=== PATIENT | female | born 1985 | race Caucasian/White ===

== ENCOUNTER 2016-03-15 14:22 | Emergency (ER) ==
[2016-03-15 14:58] LABS: MANUAL DIFF NEEDED? NO
[2016-03-15 15:06] LABS: BASO% 0.6 % (0.0-0.8); EOS# 0.13 X1000 (0.0-0.7); EOS% 2.7 % (0.0-10.0); HEMATOCRIT 41.7 % (37.0-47.0); HEMOGLOBIN 14.2 g/dL (12.0-16.0); LYMPH# 1.26 X1000 (1.2-3.4); LYMPH% 25.9 % (20.5-51.1); MCH 31.8 PG (27-31); MCHC 34.1 g/dL (33-37); MCV 93.5 FL (81-99); MONO# 0.46 X1000 (0.11-0.59); MONO% 9.4 % (1.7-9.3); MPV 12.2 FL (7.4-10.4); NEUT% 61.4 % (42.2-75.2); PLT 184 X1000 (130-400); RBC 4.46 XMIL (4.2-5.4)
[2016-03-15 15:33] LABS: AGAP 8; ALBUMIN 4.3 g/dL (3.5-5.0); ALKALINE PHOSPHATASE 60 U/L (32-104); AMYLASE 70 U/L (20-200); BUN 5 mg/dL (8-22); CALCIUM 9.3 mg/dL (8.8-10.2); CHLORIDE 95 mmol/L (98-107); COSMO 257; GOT 22 U/L (10-30); GPT 18 U/L (10-36); LIPASE 29 U/L (13-60); POTASSIUM 3.7 mmol/L (3.5-5.1); SODIUM 130 mmol/L (136-145); TCO2 27 mmol/L (25-35); TOTAL BILIRUBIN 0.18 mg/dL (0.20-1.00); TOTAL PROTEIN 7.1 g/dL (6.3-8.3)
[2016-03-15 16:17] LABS: URINE MICRO REVIEW NEEDED? NO; URINE SOURCE CLEAN CATCH
--- NOTE | 2016-03-15 16:23 | PROVIDER DOCUMENTATION ---
HPI-Abdominal Pain/GI Problem - General Source: patient - History of Present Illness-ABD Abdominal Pain Onset Location: reports: generalized abdomen Pain Radiation: reports: no radiation Quality of Pain: reports: sharp Onset/Duration: reports: 4 days ago Timing: reports: still present Activities at Onset: reports: none Exposure to sick contacts?: No Modifying Factors: improves with: vomiting Associated Symptoms: reports: vomiting Last BM: unsure Bruising or Bleeding Gums?: No Similar Symptoms Previously?: No Recently seen or treated by another doctor?: No <Rosangela Lama - Last Filed: 03/15/16 16:17> <Harish Loving - Last Filed: 03/15/16 18:42> - General Chief Complaint: Abdominal Pain Stated Complaint: ABD PAIN,VOMITING Time Seen by Provider: 03/15/16 15:00 Allergies/Adverse Reactions: Patient Allergies Allergy/AdvReac Type Severity Reaction Status Date / Time No Known Allergies Allergy Verified 11/05/15 00:25 - History of Present Illness-ABD Nature of Presenting Problems: Pt is a 30 yof who came to the ED with a cc of abdominal pain. Pt is complaining of abdominal pain since friday. Pt reports she vomits at night and when she eats it makes it worse. (Rosangela Lama) Review of Systems - Adult - REVIEW OF SYSTEMS - ADULT Constitutional: denies: chills, fever Eyes: reports: no symptoms reported Ears, Nose, Mouth & Throat: denies: nose pain, loose teeth Cardiovascular: reports: no symptoms reported Respiratory: reports: no symptoms reported Gastrointestinal: reports: abdominal pain, nausea, vomiting. denies: diarrhea, difficulty swallowing, frequent heartburn Genitourinary: denies: frequent UTI's, hematuria Musculoskeletal: reports: no symptoms reported Integumentary: reports: no symptoms reported Neurological: reports: no symptoms reported Psychiatric: reports: no symptoms reported Endocrine: reports: no symptoms reported Hematologic/Lymphatic: reports: no symptoms reported Allergic/Immunologic: reports: no symptoms reported All Other Systems: Reviewed and Negative <Rosangela Lama - Last Filed: 03/15/16 16:17> Past History - Adult - PAST MEDICAL HISTORY-ADULT Review of Records: reports: Old Records Reviewed, Nursing Assessment Review Major Childhood Illnesses: reports: denies history Cardiovascular: reports: HTN Respiratory: reports: asthma Gastrointestinal: reports: GERD Obstetrical/Gynecological: reports: denies history Genitourinary: reports: denies history Musculoskeletal: reports: arthritis, orthopedic injury Neurological: reports: denies history Psychiatric: reports: depression Endocrine/Immune: reports: denies history Other Conditions: reports: denies history - PRIOR SURGERIES/PROCEDURES Surgical/Procedure History: reports: BTL - IMMUNIZATION STATUS Childhood Immunizations: See Nurse Assessment Flu Vaccine: See Nurse Assessment - FAMILY HISTORY Family History: reviewed, not pertinent <Rosangela Lama - Last Filed: 03/15/16 16:17> Physical Exam-General - PHYSICAL EXAM-ADULT Initial Vital Signs Reviewed: Yes - CONSTITUTIONAL General Appearance: appears well, alert, no apparent distress - EYES Eyes: PERRL/EOMI, pink conjunctivae - HEAD, EARS, NOSE, MOUTH & THROAT HENMT: normocephalic/atraumatic, moist mucous membranes, normal ENT inspection - NECK Neck: non-tender, full range of motion, normal inspection - RESPIRATORY Respiratory: chest non-tender, lungs clear, normal breath sounds - CARDIOVASCULAR Cardiovascular: normal peripheral pulses, regular rate, rhythm, no edema - GASTROINTESTINAL (ABDOMEN) Abdominal Exam: normal bowel sounds, non tender, soft - LYMPHATIC Lymphatic: no adenopathy - MUSCULOSKELETAL Back Exam: normal inspection, no CVA tenderness, no vertebral tenderness Extremity: normal range of motion, non-tender, normal gait - SKIN Integumentary: normal color, normal turgor, warm/dry - NEUROLOGIC Neurologic: grossly normal, no motor/sensory deficits - PSYCHIATRIC Psych/Mental Status: normal mood/affect, normal thought content, normal thought process, oriented x 3 <Rosangela Lama - Last Filed: 03/15/16 16:17> Progress <Rosangela Lama - Last Filed: 03/15/16 16:17> - XRAY 1 XRAY Study: Abdomen XRAY Interpretation: constipation - ULTRASOUND (By Radiology) 1 US Study: Gallbladder US Results: nad <Harish Loving - Last Filed: 03/15/16 18:42> - PLAN OF CARE/RESULTS Progress/Plan/Lab Results: Vital Signs - 24 hr 03/15/16 14:35 Temperature 97.8 F Pulse Rate 55 L Respiratory 18 Rate Blood Pressure 123/63 O2 Sat by Pulse 100 Oximetry Orders Category Date Time Status NPO Diet 03/15/16 14:36 Active AMYLASE [CHEM] Stat Lab 03/15/16 14:40 Completed CBC WITH ELECTRONIC DIFF [HEME] Stat Lab 03/15/16 14:40 Completed COMPREHENSIVE METABOLIC PANEL [CHEM] Stat Lab 03/15/16 14:40 Completed LIPASE [CHEM] Stat Lab 03/15/16 14:40 Completed TEST-URINE [PREG] Stat Lab 03/15/16 14:41 Received URINALYSIS W/POSS RFLX CULT [URINALYSIS] Stat Lab 03/15/16 14:41 Results Laboratory Tests 03/15/16 03/15/16 03/15/16 14:40 14:40 14:41 WBC 4.87 RBC 4.46 Hgb 14.2 Hct 41.7 MCV 93.5 MCH 31.8 H MCHC 34.1 RDW Std Deviation 12.9 Plt Count 184 MPV 12.2 H Immature Gran % (Auto) 0.0 Neut % (Auto) 61.4 Lymph % (Auto) 25.9 [place] % (Auto) 9.4 H Eos % (Auto) 2.7 Baso % (Auto) 0.6 Immature Gran # (Auto) 0.00 Neut # (Auto) 2.99 Lymph # (Auto) 1.26 [place] # (Auto) 0.46 Eos # (Auto) 0.13 Baso # (Auto) 0.03 Sodium 130 L Potassium 3.7 Chloride 95 L Carbon Dioxide 27 Anion Gap 8 BUN 5 L Creatinine 0.8 Estimated GFR/1.73 m2 > 60 BUN/Creatinine Ratio 6 Glucose 76 Calculated Osmolality 257 Calcium 9.3 Total Bilirubin 0.18 L AST 22 ALT 18 Alkaline Phosphatase 60 Total Protein 7.1 Albumin 4.3 Globulin 2.8 Albumin/Globulin Ratio 1.5 Amylase 70 Lipase 29 Urine Source CLEAN CATCH (Kelby,Rosangela) Laboratory Tests 03/15/16 03/15/16 03/15/16 14:40 14:40 14:41 WBC 4.87 RBC 4.46 Hgb 14.2 Hct 41.7 MCV 93.5 MCH 31.8 H MCHC 34.1 RDW Std Deviation 12.9 Plt Count 184 MPV 12.2 H Immature Gran % (Auto) 0.0 Neut % (Auto) 61.4 Lymph % (Auto) 25.9 [place] % (Auto) 9.4 H Eos % (Auto) 2.7 Baso % (Auto) 0.6 Immature Gran # (Auto) 0.00 Neut # (Auto) 2.99 Lymph # (Auto) 1.26 [place] # (Auto) 0.46 Eos # (Auto) 0.13 Baso # (Auto) 0.03 Sodium 130 L Potassium 3.7 Chloride 95 L Carbon Dioxide 27 Anion Gap 8 BUN 5 L Creatinine 0.8 Estimated GFR/1.73 m2 > 60 BUN/Creatinine Ratio 6 Glucose 76 Calculated Osmolality 257 Calcium 9.3 Total Bilirubin 0.18 L AST 22 ALT 18 Alkaline Phosphatase 60 Total Protein 7.1 Albumin 4.3 Globulin 2.8 Albumin/Globulin Ratio 1.5 Amylase 70 Lipase 29 Urine Source Urine Color Urine Turbidity Urine pH Ur Specific [place] Urine Protein Ur Glucose (Stick) Ur Ketones (Stick) Urine Blood Urine Nitrite Urine Bilirubin Urobilinogen Dipstick Urine Leukocytes Urine WBC (Auto) Urine RBC (Auto) U Epithel Cells (Auto) Urine Bacteria (Auto) Urine Test NEGATIVE 03/15/16 14:41 WBC RBC Hgb Hct MCV MCH MCHC RDW Std Deviation Plt Count MPV Immature Gran % (Auto) Neut % (Auto) Lymph % (Auto) [place] % (Auto) Eos % (Auto) Baso % (Auto) Immature Gran # (Auto) Neut # (Auto) Lymph # (Auto) [place] # (Auto) Eos # (Auto) Baso # (Auto) Sodium Potassium Chloride Carbon Dioxide Anion Gap BUN Creatinine Estimated GFR/1.73 m2 BUN/Creatinine Ratio Glucose Calculated Osmolality Calcium Total Bilirubin AST ALT Alkaline Phosphatase Total Protein Albumin Globulin Albumin/Globulin Ratio Amylase Lipase Urine Source CLEAN CATCH Urine Color YELLOW Urine Turbidity HAZY Urine pH 5.5 Ur Specific [place] 1.022 Urine Protein TRACE A Ur Glucose (Stick) NEGATIVE Ur Ketones (Stick) NEGATIVE Urine Blood NEGATIVE Urine Nitrite NEGATIVE Urine Bilirubin NEGATIVE Urobilinogen Dipstick NORMAL Urine Leukocytes SMALL A Urine WBC (Auto) 10-20 A Urine RBC (Auto) <10 U Epithel Cells (Auto) >10 A Urine Bacteria (Auto) 3+ Urine Test Orders Category Date Time Status Saline Loc NOW Care 03/15/16 16:34 Active NPO Diet 03/15/16 14:36 Active ABDOMEN FLAT/UPRIGHT [RAD] Stat Exams 03/15/16 16:34 Taken US GB < RUQ (LIMITED) [US] Stat Exams 03/15/16 16:55 Taken AMYLASE [CHEM] Stat Lab 03/15/16 14:40 Completed CBC WITH ELECTRONIC DIFF [HEME] Stat Lab 03/15/16 14:40 Completed COMPREHENSIVE METABOLIC PANEL [CHEM] Stat Lab 03/15/16 14:40 Completed LIPASE [CHEM] Stat Lab 03/15/16 14:40 Completed TEST-URINE [PREG] Stat Lab 03/15/16 14:41 Completed URINALYSIS W/POSS RFLX CULT [URINALYSIS] Stat Lab 03/15/16 14:41 Completed URINE CULTURE [RM] Routine Lab 03/15/16 17:24 Received 0.9% Sodium Chloride Inj [Ns] 1,000 ml Med 03/15/16 16:34 Discontinued IV 999 mls/hr Ketorolac [Toradol] Med 03/15/16 16:34 Discontinued 30 mg IV NOW ONE Lido/Curiel Alk/Al&mg Hydrox [G.i. Cocktail] Med 03/15/16 18:39 Once 30 ml PO NOW ONE Ondansetron [Zofran] Med 03/15/16 16:34 Discontinued 4 mg IV NOW ONE Vital Signs Temp Pulse Resp BP Pulse Ox 03/15/16 14:35 97.8 F 55 L 18 123/63 100 No Known Allergies Allergy (Verified 11/05/15 00:25) Azithromycin [Zithromax Z-Waqas] 250 mg PO DIRECTED #1 pkg 11/05/15 Methylprednisolone [Medrol Dosepak] 4 mg PO DIRECTED #1 package 11/05/15 Ondansetron Odt [Zofran 8Mg Odt] 8 mg PO Q8H PRN PRN #20 tablet 11/05/15 Dietary Diet NPO Start FriMar 15 143 Laboratory 03/15/16 03/15/16 03/15/16 14:41 14:41 14:40 WBC 4.87 RBC 4.46 Hgb 14.2 Hct 41.7 MCV 93.5 MCH 31.8 H MCHC 34.1 RDW Std Deviation 12.9 Plt Count 184 MPV 12.2 H Immature Gran % (Auto) 0.0 Neut % (Auto) 61.4 Lymph % (Auto) 25.9 [place] % (Auto) 9.4 H Eos % (Auto) 2.7 Baso % (Auto) 0.6 Immature Gran # (Auto) 0.00 Neut # (Auto) 2.99 Lymph # (Auto) 1.26 [place] # (Auto) 0.46 Eos # (Auto) 0.13 Baso # (Auto) 0.03 Sodium Potassium Chloride Carbon Dioxide Anion Gap BUN Creatinine Estimated GFR/1.73 m2 BUN/Creatinine Ratio Glucose Calculated Osmolality Calcium Total Bilirubin AST ALT Alkaline Phosphatase Total Protein Albumin Globulin Albumin/Globulin Ratio Amylase Lipase Urine Source CLEAN CATCH Urine Color YELLOW Urine Turbidity HAZY Urine pH 5.5 Ur Specific [place] 1.022 Urine Protein TRACE A Ur Glucose (Stick) NEGATIVE Ur Ketones (Stick) NEGATIVE Urine Blood NEGATIVE Urine Nitrite NEGATIVE Urine Bilirubin NEGATIVE Urobilinogen Dipstick NORMAL Urine Leukocytes SMALL A Urine WBC (Auto) 10-20 A Urine RBC (Auto) <10 U Epithel Cells (Auto) >10 A Urine Bacteria (Auto) 3+ Urine Test NEGATIVE 03/15/16 14:40 WBC RBC Hgb Hct MCV MCH MCHC RDW Std Deviation Plt Count MPV Immature Gran % (Auto) Neut % (Auto) Lymph % (Auto) [place] % (Auto) Eos % (Auto) Baso % (Auto) Immature Gran # (Auto) Neut # (Auto) Lymph # (Auto) [place] # (Auto) Eos # (Auto) Baso # (Auto) Sodium 130 L Potassium 3.7 Chloride 95 L Carbon Dioxide 27 Anion Gap 8 BUN 5 L Creatinine 0.8 Estimated GFR/1.73 m2 > 60 BUN/Creatinine Ratio 6 Glucose 76 Calculated Osmolality 257 Calcium 9.3 Total Bilirubin 0.18 L AST 22 ALT 18 Alkaline Phosphatase 60 Total Protein 7.1 Albumin 4.3 Globulin 2.8 Albumin/Globulin Ratio 1.5 Amylase 70 Lipase 29 Urine Source Urine Color Urine Turbidity Urine pH Ur Specific [place] Urine Protein Ur Glucose (Stick) Ur Ketones (Stick) Urine Blood Urine Nitrite Urine Bilirubin Urobilinogen Dipstick Urine Leukocytes Urine WBC (Auto) Urine RBC (Auto) U Epithel Cells (Auto) Urine Bacteria (Auto) Urine Test Pt feeling well. Will d/c home. She is in agreement. (Harish Loving) Departure <Rosangela Lama - Last Filed: 03/15/16 16:17> - Departure Time of Disposition Order: 18:40 Certified Medical Emergency: Emergent <Harish Loving - Last Filed: 03/15/16 18:42> - Departure DIAGNOSIS: Abdominal pain Qualifiers: Abdominal location: generalized Qualified Code(s): R10.84 - Generalized abdominal pain Constipation Qualifiers: Constipation type: unspecified constipation type Qualified Code(s): K59.00 - Constipation, unspecified Disposition: HOME 01 Condition: Good Additional Instructions: Take medication as prescribed. Eat a high fiber diet and drink plenty of water. Follow up with a welding equipment repairer for continued symptoms. ED Follow Up Instructions: You have been treated by a care provider in the Emergency Department. These instructions are being provided to you so you can have an understanding of how to care for yourself upon discharge. Upon discharge from the Emergency Department, you are responsible for making arrangements for follow-up care by a physician of your choice. Take all prescribed medications as directed. Return to the Emergency Department immediately for any new or worsening symptoms. You may call the Physician Referral phone number at [phone] to obtain a list of Physicians who are taking new patients. Prescriptions: Polyethylene Glycol 3350 [Miralax] 17 gm PO DAILY #5 powd.pack Promethazine [Phenergan] 25 mg PO Q6H PRN PRN #20 tablet PRN Reason: Nausea Referrals: Susanne Stein [Primary Care Provider] - Theo Escobedo MD [STAFF PHYSICIAN] - Attestation - Scribe Verification/Attestation Scribe:: Rosangela Lama Acting as Scribe for:: Harish Loving Scribe documention review:: This chart was documented by a scribe and accurately reflects the service the provider performed and the decisions made by the provider. <Rosangela Lama - Last Filed: 03/15/16 16:17> - Physician/ Mid-level Attestation Patient care was provided by Mid-level provider (AWNING ASSEMBLER/PA):: Yes Mid-level provider:: Harish Loving Mid-level documentation review:: The Mid-level provider documentation, treatment plan and medical decision making was reviewed by the physician who agrees with all treatment and medical decision making by the [facility]. <Harish Loving - Last Filed: 03/15/16 18:42> Physician Attestation
[2016-03-15 16:29] LABS: BILIRUBIN URINE NEGATIVE (NEGATIVE); BLOOD URINE NEGATIVE (NEGATIVE); COLOR YELLOW; GLUCOSE URINE NEGATIVE (NEGATIVE); LEUKOCYTES URINE SMALL (NEGATIVE); NITRITE URINE NEGATIVE (NEGATIVE); PH URINE 5.5; PROTEIN URINE TRACE mg/dL (NEGATIVE); SP GRAVITY URINE 1.022; TURBIDITY URINE HAZY (CLEAR); UR EPITHELIAL CELLS >10 /HPF (<10); URINE BACTERIA 3+ /HPF; URINE CULTURE NEEDED? YES; URINE RBC <10 /HPF (<10); UROBILINOGEN URINE NORMAL (NORMAL)
[2016-03-15] MEDS ORDERED: NS 1,000 ML IV ONE (16:34)
[2016-03-15] MEDS ORDERED: ZOFRAN IV ONE (16:34)
[2016-03-15] MEDS ORDERED: TORADOL IV ONE (16:34)
[2016-03-15] MEDS ORDERED: G.I. COCKTAIL PO ONE (18:39)
[2016-03-15 19:07] VITALS: BP 121/76
--- NOTE | 2016-03-15 21:20 | Diag Imaging Result Document ---
PROCEDURE NAME: US GB < RUQ (LIMITED) - 03/15/2016 RIGHT UPPER QUADRANT ABDOMINAL ULTRASOUND: COMPARISON: None available. FINDINGS: The gallbladder appears normal with no stones, wall thickening, or pericholecystic fluid. The common bile duct is normal in diameter. Sonographic Weir's sign was reported to be negative. The liver, visualized pancreas, aorta, IVC, and right kidney are grossly unremarkable. IMPRESSION: Grossly unremarkable right upper quadrant ultrasound.
--- NOTE | 2016-03-15 21:49 | Diag Imaging Result Document ---
PROCEDURE NAME: ABDOMEN FLAT/UPRIGHT - 03/15/2016 FLAT AND UPRIGHT RADIOGRAPH THE ABDOMEN 2 VIEWS: COMPARISON: 08/01/2015. FINDINGS: There are unremarkable bowel gas and stool patterns. There is no evidence of bowel obstruction. There is no evidence of large volume free abdominal gas. There is no definite organomegaly. IMPRESSION: No evidence of acute abdominal pathology identified.
== END 2016-03-15 19:07 | disposition home or self-care (01) ==
LOC: ED 14:22
DX: K59.00 Constipation, unspecified (principal); R10.9 Unspecified abdominal pain; R11.2 Nausea with vomiting, unspecified; I10 Essential (primary) hypertension; K21.9 Gastro-esophageal reflux disease without esophagitis; M19.90 Unspecified osteoarthritis, unspecified site; F32.9 Major depressive disorder, single episode, unspecified; Z79.899 Other long term (current) drug therapy; Z79.52 Long term (current) use of systemic steroids
CPT/HCPCS: 36415; 74020; 76705; 80053; 81001; 81025; 82150; 83690; 85025; 87088; 96374; J1885; J2405; J7030

== ENCOUNTER 2016-03-21 20:31 | Emergency (ER) ==
[2016-03-21] MEDS ORDERED: XYLOCAINE-MPF 1% INJ ONE (21:46)
[2016-03-21] MEDS ORDERED: ROCEPHIN IM ONE (21:46)
--- NOTE | 2016-03-21 21:49 | PROVIDER DOCUMENTATION ---
HPI-Rash/Wound/ReCheck - General Chief Complaint: Abscess Stated Complaint: FEMALE Time Seen by Provider: 03/21/16 21:39 Source: patient Allergies/Adverse Reactions: Allergies Allergy/AdvReac Type Severity Reaction Status Date / Time topiramate [From Topamax] Allergy HIVES Verified 03/21/16 20:57 Home Medications: Diclofenac Sodium [Diclofenac Sodium ER] 100 mg PO DAILY 03/21/16 Omeprazole 20 mg PO BID 03/21/16 Rizatriptan [Maxalt] 10 mg PO PRN PRN 03/21/16 Tizanidine [Zanaflex] 4 mg PO QHS 03/21/16 - History of Present Illness-Dermatology Nature of Presenting Problem: 30 y/o WF c/o abscess on the right labia that began 3 days ago. States it started as a pimple, she popped it and then got larger, Pain now also in the groin. Denies fevers or chills. She shaves the mons pubis. Review of Systems - Adult - REVIEW OF SYSTEMS - ADULT Constitutional: reports: no symptoms reported. denies: chills, fever, fatique Eyes: reports: no symptoms reported. denies: decreased vision, blurred vision, double vision, eye pain Ears, Nose, Mouth & Throat: reports: no symptoms reported. denies: ear pain, nose pain, throat pain Cardiovascular: reports: no symptoms reported. denies: chest pain, irregular heart rate, palpitations Respiratory: reports: no symptoms reported. denies: cough, shortness of breath , wheezing Gastrointestinal: reports: no symptoms reported. denies: abdominal pain, diarrhea, nausea, vomiting Genitourinary: reports: no symptoms reported. denies: dysuria, discharge, frequency, incontinence Musculoskeletal: reports: no symptoms reported. denies: muscle aches Integumentary: reports: other. denies: rash Neurological: reports: no symptoms reported. denies: headache/migraines Psychiatric: reports: no symptoms reported Endocrine: reports: no symptoms reported Hematologic/Lymphatic: reports: no symptoms reported Allergic/Immunologic: reports: no symptoms reported All Other Systems: Reviewed and Negative Past History - Adult - PAST MEDICAL HISTORY-ADULT Review of Records: reports: Old Records Reviewed, Nursing Assessment Review, Medications Reviewed, Social history reviewed & non-contributory. Major Childhood Illnesses: reports: denies history Cardiovascular: reports: HTN Respiratory: reports: asthma Gastrointestinal: reports: GERD Obstetrical/Gynecological: reports: denies history Genitourinary: reports: denies history Musculoskeletal: reports: arthritis, orthopedic injury Neurological: reports: denies history Psychiatric: reports: depression Endocrine/Immune: reports: denies history Other Conditions: reports: denies history - PRIOR SURGERIES/PROCEDURES Surgical/Procedure History: reports: BTL - IMMUNIZATION STATUS Childhood Immunizations: See Nurse Assessment Flu Vaccine: See Nurse Assessment - FAMILY HISTORY Family History: reviewed, not pertinent Physical Exam-General - PHYSICAL EXAM-ADULT Initial Vital Signs Reviewed: Yes - CONSTITUTIONAL General Appearance: appears well, alert, no apparent distress - EYES Eyes: PERRL/EOMI, pink conjunctivae - HEAD, EARS, NOSE, MOUTH & THROAT HENMT: normocephalic/atraumatic, moist mucous membranes - NECK Neck: non-tender, full range of motion, supple, normal inspection. negative: lymphadenopathy - RESPIRATORY Respiratory: chest non-tender, lungs clear, normal breath sounds, no pleuratic chest pain, no respiratory distress, no accessory muscle use - CARDIOVASCULAR Cardiovascular: normal peripheral pulses, regular rate, rhythm, no edema - LYMPHATIC Lymphatic: no adenopathy - MUSCULOSKELETAL Extremity: normal gait Peripheral Pulses: radial (R): 2+, radial (L): 2+ - SKIN Integumentary: normal color, normal turgor, warm/dry, other (abscess on the right mons pubis) - NEUROLOGIC Neurologic: grossly normal, no motor/sensory deficits - PSYCHIATRIC Psych/Mental Status: normal mood/affect, normal thought content, normal thought process, oriented x 3 Progress - PLAN OF CARE/RESULTS Progress/Plan/Lab Results: Vital Signs Temp Pulse Resp BP Pulse Ox 03/21/16 20:52 98.2 F 92 H 18 125/94 100 topiramate [From Topamax] Allergy (Verified 03/21/16 20:57) HIVES Ondansetron Odt [Zofran 8Mg Odt] 8 mg PO Q8H PRN PRN #20 tablet 11/05/15 Promethazine [Phenergan] 25 mg PO Q6H PRN PRN #20 tablet 03/15/16 Diclofenac Sodium [Diclofenac Sodium ER] 100 mg PO DAILY 03/21/16 Mupirocin Ointment [Bactroban Ointment] 1 applicatn TOP TID #1 tube 03/21/16 Omeprazole 20 mg PO BID 03/21/16 Rizatriptan [Maxalt] 10 mg PO PRN PRN 03/21/16 Sulfamethoxazole/Trimethoprim [Bactrim Ds Tablet] 1 each PO BID #10 tablet 03/21 Tizanidine [Zanaflex] 4 mg PO QHS 03/21/16 Orders Category Date Time Status CefTRIAXONE [Rocephin] Med 03/21/16 21:46 Discontinued 1 gm IM NOW ONE Lidocaine 1% Pf [Xylocaine-Mpf 1%] Med 03/21/16 21:46 Discontinued 5 ml INJ NOW ONE Departure - Departure Time of Disposition Order: 21:48 DIAGNOSIS: Abscess Disposition: HOME 01 Certified Medical Emergency: Emergent Condition: Stable Additional Instructions: Tylenol and motrin for pain ED Follow Up Instructions: You have been treated by a care provider in the Emergency Department. These instructions are being provided to you so you can have an understanding of how to care for yourself upon discharge. Upon discharge from the Emergency Department, you are responsible for making arrangements for follow-up care by a physician of your choice. Take all prescribed medications as directed. Return to the Emergency Department immediately for any new or worsening symptoms. You may call the Physician Referral phone number at [phone] to obtain a list of Physicians who are taking new patients. Prescriptions: Sulfamethoxazole/Trimethoprim [Bactrim Ds Tablet] 1 each PO BID #10 tablet Mupirocin Ointment [Bactroban Ointment] 1 applicatn TOP TID #1 tube Referrals: Susanne Stein [Primary Care Provider] - Attestation - Physician/ Mid-level Attestation Patient care was provided by Mid-level provider (HIGH SCHOOL MATH TUTOR/PA):: Yes Mid-level provider:: Kelly Gooden Mid-level documentation review:: The Mid-level provider documentation, treatment plan and medical decision making was reviewed by the physician who agrees with all treatment and medical decision making by the MLP.
[2016-03-21 22:10] VITALS: BP 128/88
== END 2016-03-21 22:10 | disposition home or self-care (01) ==
LOC: P.ED 20:31
DX: L02.215 Cutaneous abscess of perineum (principal); I10 Essential (primary) hypertension; K21.9 Gastro-esophageal reflux disease without esophagitis; M19.90 Unspecified osteoarthritis, unspecified site; Z79.899 Other long term (current) drug therapy
CPT/HCPCS: 96372; J0696